=== PATIENT | female | born 1945 | race Caucasian/White ===

== ENCOUNTER → 2023-11-05 06:58 | Outpatient (REF) | payer MEDICARE, OTHER, SELFPAY ==
[2023-11-05 07:35] LABS: Urine Albumin Negative (Neg - Trace); Urine Bilirubin Negative (Negative); Urine Character Clear (Clear); Urine Color Yellow; Urine Glucose Negative (Negative); Urine Ketone Negative (Negative); Urine Leukocyte Negative (Negative); Urine Nitrite Negative (Negative); Urine Occult Blood 1+ (Negative); Urine Specific Gravity 1.015 (<1.030); Urine Urobilinogen Negative (Neg - 1+)
[2023-11-05 07:46] LABS: % Basophils 1.2 % (0-2); % Eosinophils 3.8 % (0-6); % Immature Granulocytes 0.2 % (0-0.5); % Lymphocytes 36.4 % (20.5-51.1); % Monocytes 9.9 % (1.7-9.3); % Neutrophils 48.5 % (42.2-75.2); Absolute Basophils 0.1 10^3/uL (0-0.2); Absolute Eosinophils 0.2 10^3/uL (0-0.7); Absolute Lymphocytes 2.2 10^3/uL (1.2-3.4); Absolute Monocytes 0.6 10^3/uL (0.1-0.6); Absolute Neutrophils 2.9 10^3/uL (1.4-6.5); Hematocrit 39.9 % (37.0-47.0); Hemoglobin 13.6 g/dL (12.0-16.0); Mean Corp Hgb Conc. 34.1 g/dL (33.0-37.0); Mean Corpuscular Hgb 30.4 pg (27.0-31.0); Mean Corpuscular Volume 89.3 fL (81.0-99.0); Mean Platelet Volume 11.4 fL (7.4-10.4); Nucleated Red Blood Cells % 0 %; Platelet Count 185 10^3/uL (130-400); Red Blood Cell Count 4.47 10^6/uL (4.20-5.40); Red Cell Dist. Width 12.6 % (11.5-14.5); White Blood Cell Count 6.1 10^3/uL (4.8-10.8)
[2023-11-05 07:49] LABS: Urine Bacteria Few (Negative); Urine Red Blood Cell 0-2 /HPF (0-2); Urine Squamous Cell 0-2 /LPF (Few); Urine White Cell 0-2 /HPF (0-5)
[2023-11-05 08:12] LABS: ALT (SGPT) 23 U/L (0-35); AST (SGOT) 27 U/L (14-36); Albumin 4.4 g/dl (3.5-5.0); Alkaline Phosphatase 103 U/L (38-126); Blood Urea Nitrogen 14 mg/dl (7-17); Carbon Dioxide 31 mmol/L (22-30); Chloride 100 mmol/L (98-107); Glucose 91 mg/dl (70-99); HDL Cholesterol 71 mg/dl; LDL Cholesterol, Calculated 123 mg/dl; Potassium 3.6 mmol/L (3.5-5.1); Sodium 139 mmol/L (135-145); Total Bilirubin 0.6 mg/dl (0.2-1.3); Total Cholesterol 229 mg/dl (50-199); Total Protein 7.9 g/dl (6.3-8.2); Triglyceride 176 mg/dl (10-149); Very Low Density Lipoprotein 35 mg/dl (0-30); eGFR > 60.00
[2023-11-05 08:36] LABS: Microalbumin, Random Urine <0.6 mg/dl (0.6-1.7)
[2023-11-05 09:39] LABS: Vitamin D, 25-OH*** 55.5 ng/mL (30-80)
[2023-11-05 09:53] LABS: TSH Reflex To Free T4 4.29 uIU/ml (0.47-4.68)
== END ==
LOC: REG 06:58
PROVIDERS: ATTENDING PHYSICIAN Internal Medicine
DX: E55.9 Vitamin D deficiency, unspecified (principal); E78.49 Other hyperlipidemia; Z00.00 Encounter for general adult medical examination without abnormal findings; Z78.9 Other specified health status
CPT/HCPCS: 36415; 80053; 80061; 81003; 81015; 82043; 82306; 82570; 84443; 85025; 86141

== ENCOUNTER → 2023-11-21 14:11 | Outpatient (REF) | payer MEDICARE, OTHER, SELFPAY ==
[2023-11-21 15:54] LABS: Urine Albumin Negative (Neg - Trace); Urine Bilirubin Negative (Negative); Urine Character Clear (Clear); Urine Color Yellow; Urine Glucose Negative (Negative); Urine Ketone Negative (Negative); Urine Leukocyte Negative (Negative); Urine Nitrite Negative (Negative); Urine Occult Blood 1+ (Negative); Urine Urobilinogen Negative (Neg - 1+)
[2023-11-21 16:03] LABS: Urine Bacteria Few (Negative); Urine White Cell 0-2 /HPF (0-5)
== END ==
LOC: REG 14:11
PROVIDERS: ATTENDING PHYSICIAN Internal Medicine
DX: R30.0 Dysuria (principal)
CPT/HCPCS: 81003; 81015; 87086

== ENCOUNTER → 2023-11-26 14:32 | Outpatient (REF) | payer MEDICARE, OTHER, SELFPAY ==
[2023-11-26 16:02] LABS: Urine Albumin Negative (Neg - Trace); Urine Bilirubin Negative (Negative); Urine Character Clear (Clear); Urine Color Yellow; Urine Glucose Negative (Negative); Urine Ketone Negative (Negative); Urine Leukocyte Negative (Negative); Urine Nitrite Negative (Negative); Urine Occult Blood Trace (Negative); Urine Urobilinogen Negative (Neg - 1+)
[2023-11-26 16:19] LABS: Urine Bacteria Few (Negative); Urine White Cell 0-2 /HPF (0-5)
== END ==
LOC: REG 14:32
PROVIDERS: ATTENDING PHYSICIAN Internal Medicine
DX: R10.9 Unspecified abdominal pain (principal); R31.9 Hematuria, unspecified
CPT/HCPCS: 81003; 81015

== ENCOUNTER → 2023-12-07 07:19 | Outpatient (REF) | payer MEDICARE, OTHER, SELFPAY ==
[2023-12-07 08:22] LABS: Urine Albumin Negative (Neg - Trace); Urine Bilirubin Negative (Negative); Urine Character Clear (Clear); Urine Color Yellow; Urine Glucose Negative (Negative); Urine Ketone Negative (Negative); Urine Leukocyte Negative (Negative); Urine Nitrite Negative (Negative); Urine Occult Blood 1+ (Negative); Urine Urobilinogen Negative (Neg - 1+)
[2023-12-07 08:45] LABS: Urine Squamous Cell 0-2 /LPF (Few)
[2023-12-07 08:46] LABS: Urine Red Blood Cell 0-2 /HPF (0-2); Urine Urothelial Cell 0-2 /LPF (FEW); Urine White Cell 0-2 /HPF (0-5)
[2023-12-07 09:05] LABS: Erythrocyte Sed Rate 26 mm/hour (0-20)
[2023-12-07 09:20] LABS: C-Reactive Protein < 5.00 mg/L (0.0-10.00)
[2023-12-07 09:37] LABS: Free T4 0.94 ng/dl (0.78-2.19)
[2023-12-07 09:51] LABS: TSH 3.28 uIU/ml (0.47-4.68)
[2023-12-07 10:04] LABS: Creatine Phosphokinase 29 U/L (30-135); LDH 165 U/L (120-246)
[2023-12-08 09:47] LABS: Thyroid Peroxidase Ab (TPO) 0.9 IU/mL (0.0-9.0)
[2023-12-08 20:44] LABS: Aldolase 3.3 U/L (1.2-7.6)
[2023-12-10 19:51] LABS: Thyroglobulin Antibodies 4.6 IU/mL (0.0-4.0); Thyroglobulin by LC-MS/MS <0.5 ng/mL (1.3-31.8)
== END ==
LOC: REG 07:19
PROVIDERS: ATTENDING PHYSICIAN Internal Medicine
DX: M79.10 Myalgia, unspecified site (principal); R31.29 Other microscopic hematuria; R79.89 Other specified abnormal findings of blood chemistry; L65.9 Nonscarring hair loss, unspecified
CPT/HCPCS: 36415; 81003; 81015; 82085; 82550; 83615; 84432; 84439; 84443; 85652; 86140; 86376; 86800

== ENCOUNTER → 2023-12-19 10:25 | Outpatient (REF) | payer MEDICARE, OTHER, SELFPAY | LOC: RAD 10:25 | PROVIDERS: ATTENDING PHYSICIAN Internal Medicine | DX: M81.0 Age-related osteoporosis without current pathological fracture (principal) | CPT/HCPCS: 77080 ==

== ENCOUNTER → 2023-12-31 09:59 | Outpatient (REF) | payer MEDICARE, OTHER, SELFPAY | LOC: RAD 09:59 | PROVIDERS: ATTENDING PHYSICIAN Internal Medicine | DX: R31.29 Other microscopic hematuria (principal); N94.9 Unspecified condition associated with female genital organs and menstrual cycle; R18.8 Other ascites | CPT/HCPCS: 76770; 76856 ==

== ENCOUNTER → 2024-01-09 07:08 | Outpatient (REF) | payer MEDICARE, OTHER, SELFPAY ==
[2024-01-09 07:47] LABS: % Eosinophils 3.1 % (0-6); % Immature Granulocytes 0.2 % (0-0.5); % Lymphocytes 33.2 % (20.5-51.1); % Monocytes 10.2 % (1.7-9.3); % Neutrophils 52.3 % (42.2-75.2); Absolute Basophils 0.1 10^3/uL (0-0.2); Absolute Eosinophils 0.2 10^3/uL (0-0.7); Absolute Lymphocytes 1.6 10^3/uL (1.2-3.4); Absolute Monocytes 0.5 10^3/uL (0.1-0.6); Absolute Neutrophils 2.5 10^3/uL (1.4-6.5); Hematocrit 39.8 % (37.0-47.0); Hemoglobin 13.3 g/dL (12.0-16.0); Mean Corp Hgb Conc. 33.4 g/dL (33.0-37.0); Mean Corpuscular Hgb 30.7 pg (27.0-31.0); Mean Corpuscular Volume 91.9 fL (81.0-99.0); Mean Platelet Volume 11.5 fL (7.4-10.4); Nucleated Red Blood Cells % 0 %; Platelet Count 170 10^3/uL (130-400); Red Blood Cell Count 4.33 10^6/uL (4.20-5.40); Red Cell Dist. Width 12.1 % (11.5-14.5); White Blood Cell Count 4.8 10^3/uL (4.8-10.8)
[2024-01-09 08:27] LABS: Blood Urea Nitrogen 17 mg/dl (7-17); Calcium 9.9 mg/dl (8.4-10.2); Carbon Dioxide 28 mmol/L (22-30); Chloride 100 mmol/L (98-107); Glucose 89 mg/dl (70-99); Potassium 4.1 mmol/L (3.5-5.1); Sodium 138 mmol/L (135-145); eGFR > 60.00
[2024-01-12 05:51] LABS: Albumin 3.98 g/dL (3.75-5.01); Alpha 1 Globulin 0.25 g/dL (0.19-0.46); Free Kappa Light Chains,Quant 36.15 mg/L (3.30-19.40); Free Lambda Light Chains,Quant 11.59 mg/L (5.71-26.30); IgA 95 mg/dL (68-408); IgG 741 mg/dL (768-1632); IgM 733 mg/dL (35-263); Immunofixation Electrophoresis IFE Done; Kappa/Lambda Fr Light Ratio 3.12 (0.26-1.65); Monoclonal Protein 0.55 g/dL (<=0.00)
== END ==
LOC: REG 07:08
PROVIDERS: ATTENDING PHYSICIAN Internal Medicine Hematology & Oncology; FAMILY PHYSICIAN Internal Medicine
DX: D47.2 Monoclonal gammopathy (principal); R10.84 Generalized abdominal pain; C50.912 Malignant neoplasm of unspecified site of left female breast; C50.911 Malignant neoplasm of unspecified site of right female breast; Z90.13 Acquired absence of bilateral breasts and nipples
CPT/HCPCS: 36415; 80048; 82784; 83521; 84155; 84165; 85025; 86334

== ENCOUNTER 2024-01-14 22:31 | Emergency (ER) | payer MEDICARE, OTHER, SELFPAY ==
[2024-01-14 22:40] VITALS: BP 155/80
[2024-01-14 23:00] LABS: % Basophils 0.8 % (0-2); % Eosinophils 2.4 % (0-6); % Immature Granulocytes 0.2 % (0-0.5); % Lymphocytes 35.7 % (20.5-51.1); % Monocytes 11.1 % (1.7-9.3); % Neutrophils 49.8 % (42.2-75.2); Absolute Basophils 0.1 10^3/uL (0-0.2); Absolute Eosinophils 0.2 10^3/uL (0-0.7); Absolute Lymphocytes 2.3 10^3/uL (1.2-3.4); Absolute Monocytes 0.7 10^3/uL (0.1-0.6); Absolute Neutrophils 3.1 10^3/uL (1.4-6.5); Hematocrit 37.3 % (37.0-47.0); Hemoglobin 13.2 g/dL (12.0-16.0); Mean Corp Hgb Conc. 35.4 g/dL (33.0-37.0); Mean Corpuscular Hgb 30.7 pg (27.0-31.0); Mean Corpuscular Volume 86.7 fL (81.0-99.0); Nucleated Red Blood Cells % 0 %; Platelet Count 185 10^3/uL (130-400); Red Cell Dist. Width 12.1 % (11.5-14.5); White Blood Cell Count 6.3 10^3/uL (4.8-10.8)
[2024-01-14 23:14] LABS: ALT (SGPT) 24 U/L (0-35); AST (SGOT) 28 U/L (14-36); Albumin 4.2 g/dl (3.5-5.0); Alkaline Phosphatase 115 U/L (38-126); Blood Urea Nitrogen 18 mg/dl (7-17); Calcium 10.2 mg/dl (8.4-10.2); Carbon Dioxide 34 mmol/L (22-30); Chloride 95 mmol/L (98-107); Glucose 94 mg/dl (70-99); Lipase 62 U/L (23-300); Potassium 4.5 mmol/L (3.5-5.1); Sodium 134 mmol/L (135-145); Total Bilirubin 0.5 mg/dl (0.2-1.3); Total Protein 7.3 g/dl (6.3-8.2); eGFR > 60.00
--- NOTE | 2024-01-15 02:52 | ED.GENMED ---
History of Present Illness
General
Chief Complaint: Abdominal Pain
Source: patient, records and spouse
Exam Limitations: none
Time Seen by Provider: 01/15/24 02:29
Nursing documentation reviewed up to this point in time: agreed with
Travel History
Have you had any contact with someone who has COVID-19?: No
Do you have any symptoms of coronavirus? Fever > 100 degrees, chills, cough, shortness of breath, sore throat, loss of taste or smell, muscle aches, or headache?: No
History of Present Illness
History of Present Illness:
Very pleasant 78-year-old female accompanied by her spouse developed abdominal pain yesterday while at mass, with bloating decreased p.o. intake, no diarrhea a lot of nausea states she has had chronic pancreatitis, never drinker no new meds, also
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
and improve
Past History
Past History
ED Past Medical History: Cancer (Breast cancer, status post bilateral mastectomies), GERD (Chronic upper abdominal pain. Gastritis/GERD), Hypercholesterolemia, Other (Cervical DJD, anxiety) and Other (Status post lap cholecystectomy, status post
common duct stone(03/07), status post rupture ectopic , total, hysterectomy, diverticulitis, eosinophilic esophagitis)
ED Past Surgical History: Cholecystectomy, Gynecological, Orthopedic (Left carpal tunnel release, laminectomy) and Other (Melvin. Mastectomy, Hysterectomy)
Social History
Tobacco: Non-smoker
Alcohol: None
Drug: None
Personal:
Living: with family
Employment: Retired
Family History
Family History: Other (Father and brother with lymphoma, father with liver disease)
Review of Systems
Review of Systems
All Other Systems: Not applicable
Constitutional: Denies fever or fatigue
EENT: Reports no symptoms
Respiratory: Reports no symptoms
Cardiac: Reports no symptoms
ABD/GI: Reports abdominal pain, nausea and anorexia; Denies vomiting or constipated
: Reports no symptoms
Phy Exam
Physical Exam
Physical Exam:
Physical Exam
General: no apparent distress, not acutely ill
Neck: Lips are slightly dry
Heart: s1/s2 regular rate and rhythm, no murmur. equal radial pulses.
Lungs: no acute respiratory distress. clear bilaterally
Abdomen: Distended slightly diminished bowel sounds no guarding or rebound
Neuro: alert and oriented. no focal neurological deficits
Skin: no rash
Psychiatric: well kept. interactive and cooperative
Extremities: no edema.
Course
Orders/Labs/Results
Orders:
Orders
01/14/24 22:53
CMP [Comprehensive Metabolic Panel] Urgent
Complete Blood Count/With Diff Urgent
Lipase Urgent
01/15/24 02:44
Iohexol [Omnipaque] See Protocol PO NOW STA
01/15/24 02:45
CT Abd/pel W Iv And Oral Contr Urgent
Comment:
Reason For Exam: bloating
Morphine Sulfate 2 mg IV NOW STA
Ondansetron Injectable [Zofran] 4 mg IV NOW STA
01/15/24 02:57
Acetaminophen 1000MG/100Ml [Ofirmev] 1,000 mg in 100 ml IV ONCE
Acetaminophen IV Indication:: ED Narcotic Naive Pt-ONCE
01/15/24 06:03
0.9% Sodium Chloride 1000 ml [Nss] 1,000 ml IV BOLUS
Abnormal Lab Results
01/14/24
22:53
MPV 11.0 H fL
(7.4-10.4)
Absolute Monos (auto) 0.7 H 10^3/uL
(0.1-0.6)
Monocytes % 11.1 H %
(1.7-9.3)
Sodium 134 L mmol/L
(135-145)
Chloride 95 L mmol/L
(98-107)
Carbon Dioxide 34 H mmol/L
(22-30)
BUN 18 H mg/dl
(7-17)
01/14/24 22:53
01/14/24 22:53
Vital Signs
Initial and Last Documented VS:
Initial Vital Signs
Temp Pulse Resp BP Pulse Ox
97.7 F 80 22 155/80 96
01/14/24 22:40 01/14/24 22:40 01/14/24 22:40 01/14/24 22:40 01/14/24 22:40
Last Documented Vital Signs
Temp Pulse Resp BP Pulse Ox
97.7 F 80 22 155/80 96
01/14/24 22:40 01/14/24 22:40 01/14/24 22:40 01/14/24 22:40 01/14/24 22:40
*Critical Care Note
Total Time (30-74mins, 75-104mins- exclusive of procedures): Not Applicable
Update Note
Update Note:
Update patient looks well labs noted CAT scan report noted patient states she has some diarrhea requesting more fluids and given a warm blanket states she cannot tolerate any other meds
ED Attending Note
-
Portions of this chart may have been created with voice recognition software.� Occasional wrong word or��sound alike� substitutions may have occurred due to the inherent limitations of voice recognition software.
Discharge Plan
Departure
Patient Disposition: Home (Routine Discharge)
Date of Disposition: 01/15/24
Time of Disposition: 06:05
Patient with high blood pressure during this ER visit?: No
Condition: Good
Covid-19: Not Applicable
Discharge Problem:
Abdominal pain
Instructions: Abdominal Pain, Diarrhea in teens and adults
Prescriptions:
No Action
Refresh Classic (PF) 10 DROPS dropperette
2 drops BOTH EYES BID
Cran-Rx
1 cap PO BID
calcium-vitamin D3-vitamin K 1 EACH tablet,chewable
1 ea PO BID
Women's Multivitamin w-Biotin 1 EACH tablet,chewable
2 ea PO DAILY
Zenpep 1 EACH capsule,delayed release(DR/EC)
3 ea PO TID
Zenpep 1 EACH capsule,delayed release(DR/EC)
1 cap PO DIRECTED
Boost 237 ML liquid
237 ml PO DAILY
azelastine 205.5 mcg (0.15 %) spray,non-aerosol
2 spray intranasal BID Qty: 30 0RF
loratadine [Claritin] 10 mg tablet
10 mg PO DAILY Qty: 15 0RF
Referrals:
Suki Park MD [Family Provider] -
Interventions
Interventions:
*Risk Screen - Suicide Last Done: 01/14/24 22:40
*General Assessment Last Done: 01/15/24 02:44
*Neglect/Abuse Screening Last Done: 01/14/24 22:40
ED- Fall Risk Assessment Last Done: 01/15/24 02:44
*ED COVID-19 Vaccine History Last Done: 01/15/24 02:44
LA-Xkwqjh-Efsxzfzqwi Assessment Last Done: 01/15/24 02:44
Discharge Date and Time
Print Language: SLOVENIAN
[2024-01-15] MEDS: OMNIPAQUE 50 ML PO (03:04)
[2024-01-15] MEDS: ZOFRAN 4 MG IV (03:05)
[2024-01-15] MEDS: OFIRMEV 100 IV (03:06)
[2024-01-15] MEDS: NSS 1000 IV (06:17)
[2024-01-15 08:15] VITALS: BP 138/74
== END 2024-01-15 08:18 | disposition home or self-care (01) ==
LOC: EMR 22:31
PROVIDERS: Emergency Medicine; EMERGENCY PHYSICIAN Emergency Medicine; FAMILY PHYSICIAN Internal Medicine
DX: R10.9 Unspecified abdominal pain (principal); R19.7 Diarrhea, unspecified; R14.0 Abdominal distension (gaseous); R11.0 Nausea; K86.1 Other chronic pancreatitis; K21.9 Gastro-esophageal reflux disease without esophagitis; E78.00 Pure hypercholesterolemia, unspecified; M47.812 Spondylosis without myelopathy or radiculopathy, cervical region; F41.9 Anxiety disorder, unspecified; K57.92 Diverticulitis of intestine, part unspecified, without perforation or abscess without bleeding; G62.9 Polyneuropathy, unspecified; Z85.3 Personal history of malignant neoplasm of breast; Z90.49 Acquired absence of other specified parts of digestive tract; Z90.13 Acquired absence of bilateral breasts and nipples; Z86.16 Personal history of COVID-19; Z87.442 Personal history of urinary calculi; Z88.6 Allergy status to analgesic agent; Z88.1 Allergy status to other antibiotic agents; Z88.3 Allergy status to other anti-infective agents; Z91.030 Bee allergy status; Z91.040 Latex allergy status; Z88.5 Allergy status to narcotic agent; Z88.0 Allergy status to penicillin; Z88.7 Allergy status to serum and vaccine; Z88.8 Allergy status to other drugs, medicaments and biological substances; Z91.018 Allergy to other foods
CPT/HCPCS: 99285; 96374; 96375; 96361; 74177; 80053; 83690; 85025; Q9967

== ENCOUNTER → 2024-01-28 09:46 | Outpatient (REF) | payer MEDICARE, OTHER, SELFPAY ==
[2024-01-28 10:29] VITALS: BP 143/76; BP_SYST 76
== END ==
LOC: RADI 09:46
PROVIDERS: ATTENDING PHYSICIAN Nurse Practitioner Adult Health; FAMILY PHYSICIAN Internal Medicine
DX: R93.5 Abnormal findings on diagnostic imaging of other abdominal regions, including retroperitoneum (principal); R10.84 Generalized abdominal pain; D47.2 Monoclonal gammopathy; Z53.09 Procedure and treatment not carried out because of other contraindication; Z85.3 Personal history of malignant neoplasm of breast; Z88.5 Allergy status to narcotic agent; Z88.8 Allergy status to other drugs, medicaments and biological substances; Z91.030 Bee allergy status; Z91.040 Latex allergy status
CPT/HCPCS: 76380; 76705

== ENCOUNTER → 2024-02-15 15:18 | Outpatient (REF) | payer MEDICARE, OTHER, SELFPAY | LOC: CLAB 15:18 | PROVIDERS: ATTENDING PHYSICIAN Specialist | DX: R31.9 Hematuria, unspecified (principal) | CPT/HCPCS: 88112 ==

== ENCOUNTER → 2024-02-18 19:45 | Outpatient (REF) | payer MEDICARE, OTHER, SELFPAY | LOC: MRI 3T 19:45 | PROVIDERS: ATTENDING PHYSICIAN Internal Medicine | DX: N83.201 Unspecified ovarian cyst, right side (principal); R18.8 Other ascites | CPT/HCPCS: 72197; A9575 ==

== ENCOUNTER → 2024-04-01 09:59 | Outpatient (REF) | payer MEDICARE, OTHER, SELFPAY | LOC: RAD 09:59 | PROVIDERS: ATTENDING PHYSICIAN Internal Medicine | DX: I82.409 Acute embolism and thrombosis of unspecified deep veins of unspecified lower extremity (principal); I80.9 Phlebitis and thrombophlebitis of unspecified site; R22.42 Localized swelling, mass and lump, left lower limb | CPT/HCPCS: 93971 ==

== ENCOUNTER → 2024-04-14 07:53 | Outpatient (REF) | payer MEDICARE, OTHER, SELFPAY | LOC: RAD 07:53 | PROVIDERS: ATTENDING PHYSICIAN Internal Medicine | DX: R13.19 Other dysphagia (principal); M25.561 Pain in right knee; M25.562 Pain in left knee; M81.0 Age-related osteoporosis without current pathological fracture | CPT/HCPCS: 73560; 74246 ==

== ENCOUNTER 2024-04-25 06:32 | Day surgery (SDC) | payer MEDICARE, OTHER, SELFPAY ==
[2024-04-25 13:08] VITALS: BMI 22.3
[2024-04-25 13:10] VITALS: BP 155/95
[2024-04-25 13:21] VITALS: BMI 22.3
[2024-04-25 15:05] VITALS: BP 145/79
[2024-04-25 15:15] VITALS: BP 141/80
[2024-04-25 15:30] VITALS: BP 143/76
== END 2024-04-25 16:00 | disposition home or self-care (01) ==
LOC: SDS 06:32
PROVIDERS: ATTENDING PHYSICIAN Internal Medicine Gastroenterology
DX: K31.7 Polyp of stomach and duodenum (principal); K21.9 Gastro-esophageal reflux disease without esophagitis; K31.89 Other diseases of stomach and duodenum
CPT/HCPCS: 43239; 88305; 88313

== ENCOUNTER 2024-05-04 06:30 | Emergency (ER) | payer MEDICARE, BC, OTHER, SELFPAY ==
[2024-05-04 06:31] VITALS: BP 115/72; BMI 17.6
[2024-05-04 06:37] VITALS: BP 135/115
[2024-05-04 06:38] VITALS: BP 115/72
[2024-05-04 06:52] LABS: % Basophils 1.1 % (0-2); % Eosinophils 3.8 % (0-6); % Immature Granulocytes 0.2 % (0-0.5); % Lymphocytes 44.4 % (20.5-51.1); % Monocytes 10.4 % (1.7-9.3); % Neutrophils 40.1 % (42.2-75.2); Absolute Basophils 0.1 10^3/uL (0-0.2); Absolute Eosinophils 0.2 10^3/uL (0-0.7); Absolute Lymphocytes 2.4 10^3/uL (1.2-3.4); Absolute Monocytes 0.6 10^3/uL (0.1-0.6); Absolute Neutrophils 2.2 10^3/uL (1.4-6.5); Hematocrit 37.1 % (37.0-47.0); Hemoglobin 13.2 g/dL (12.0-16.0); Mean Corp Hgb Conc. 35.6 g/dL (33.0-37.0); Mean Corpuscular Hgb 30.5 pg (27.0-31.0); Mean Corpuscular Volume 85.7 fL (81.0-99.0); Mean Platelet Volume 11.8 fL (7.4-10.4); Nucleated Red Blood Cells % 0 %; Platelet Count 184 10^3/uL (130-400); Red Blood Cell Count 4.33 10^6/uL (4.20-5.40); Red Cell Dist. Width 12.1 % (11.5-14.5); White Blood Cell Count 5.5 10^3/uL (4.8-10.8)
[2024-05-04 07:07] LABS: ALT (SGPT) 18 U/L (0-35); AST (SGOT) 30 U/L (14-36); Albumin 4.3 g/dl (3.5-5.0); Alkaline Phosphatase 95 U/L (38-126); Blood Urea Nitrogen 17 mg/dl (7-17); Calcium 10.5 mg/dl (8.4-10.2); Carbon Dioxide 26 mmol/L (22-30); Chloride 101 mmol/L (98-107); Estimated Creatinine Clearance 57 ml/min; Glucose 90 mg/dl (70-99); Potassium 3.9 mmol/L (3.5-5.1); Sodium 140 mmol/L (135-145); Total Bilirubin 0.6 mg/dl (0.2-1.3); Total Protein 7.1 g/dl (6.3-8.2); eGFR > 60.00
[2024-05-04 07:10] LABS: D-Dimer 0.34 ug/mlFEU (0.00-0.50)
--- NOTE | 2024-05-04 07:22 | ED.GENMED ---
History of Present Illness
General
Chief Complaint: Chest Pain
Time Seen by Provider: 05/04/24 06:47
History of Present Illness
History of Present Illness:
79-year-old female with history of gastric reflux presenting to the emergency department for chest pain. Patient reports she has been having ongoing chest discomfort for the past month, however woke up at 5 AM with pressure, felt like something was
sitting on her chest. She felt dyspneic at the time. Symptoms have since resolved. She notes that last night she was having some pain in her left calf. Denies inciting injury or trauma. Denies any known cardiac issues. Denies any history of
blood clot, recent travel, recent surgery. Denies abdominal pain or GI discomfort. Denies fever, cough, systemic symptoms. Denies additional acute medical complaints
Past History
Past History
ED Past Medical History: Cancer (Breast cancer, status post bilateral mastectomies), GERD (Chronic upper abdominal pain. Gastritis/GERD), Hypercholesterolemia, Other (Cervical DJD, anxiety) and Other (Status post lap cholecystectomy, status post
common duct stone(03/07), status post rupture ectopic , total, hysterectomy, diverticulitis, eosinophilic esophagitis)
ED Past Surgical History: Cholecystectomy, Gynecological, Orthopedic (Left carpal tunnel release, laminectomy) and Other (Melvin. Mastectomy, Hysterectomy)
Social History
Tobacco: Non-smoker
Alcohol: None
Drug: None
Personal:
Living: with family
Employment: Retired
Family History
Family History: Other (Father and brother with lymphoma, father with liver disease)
Phy Exam
Physical Exam
Physical Exam:
General: Well-appearing, no clinical signs of dehydration, nontoxic and in no acute distress
HEENT: protecting airway
Neck: appears supple
CV: Normal heart rate, regular rhythm, no evidence of cyanosis
Resp: No accessory muscle use, no increased work of breathing, lungs clear to auscultation bilaterally
Abd: Soft and non-distended, no tenderness to palpation
Extremities: No deformities, no swelling, no erythema, pulses and sensation intact
Neuro: alert, no focal neurologic deficit
: deferred
Rectal: deferred
Psych: Normal affect
Skin: Intact
Scores
Heart Score for Chest Pain Patients
STEMI patient?: No
History: Slightly or Non-Suspicious
ECG: Normal
Age: >/= 65 years
Risk Factors: 1 or 2 Risk Factors
Troponin: </= Normal Limit
Heart Score for Chest Pain Patients: 3
Heart Score Risk: 2.5% MACE over next 6 weeks
Course
Orders/Labs/Results
Orders:
Orders
05/04/24 06:31
Electrocardiogram (*1) Urgent
Reason for Study: Chest Pain
Cardiac Monitoring- Treatment ONCE
EKG- Treatment ONCE
IV Insert/Care/Rem.- Treatment PRN
O2 Therapy [RESP] Urgent
Titrate/Wean O2 to maintain O2 sat greater than (%): 90
Special Instructions: Maintain sats >/=90%
Pulse Ox/spot Check [RESP] Urgent
Quantity: 1
Special Instructions: ON ROOM AIR
05/04/24 06:40
Complete Blood Count/With Diff Urgent
Comprehensive Metabolic Panel Urgent
05/04/24 06:48
CR Chest - 2 Views Urgent
Comment:
Reason For Exam: chest pain
05/04/24 06:49
D-Dimer Urgent
05/04/24 07:53
Troponin I Urgent
Abnormal Lab Results
05/04/24
06:40
MPV 11.8 H fL
(7.4-10.4)
Neutrophils % 40.1 L %
(42.2-75.2)
Monocytes % 10.4 H %
(1.7-9.3)
Calcium 10.5 H mg/dl
(8.4-10.2)
05/04/24 06:40
05/04/24 06:40
Vital Signs
Initial and Last Documented VS:
Initial Vital Signs
Temp Pulse Resp BP Pulse Ox
98.1 F 78 16 115/72 100
05/04/24 06:31 05/04/24 06:31 05/04/24 06:31 05/04/24 06:31 05/04/24 06:31
Last Documented Vital Signs
Temp Pulse Resp BP Pulse Ox
98.1 F 77 17 115/72 100
05/04/24 06:31 05/04/24 06:45 05/04/24 06:45 05/04/24 06:38 05/04/24 06:45
MDM/Problems Addressed
MDM/Problems Addressed:
79-year-old female with history of gastric reflux presenting for chest pressure, onset prior to arrival. Vital signs on arrival are normal.
On exam, patient is well-appearing, no acute distress or discomfort. Unremarkable cardiac and pulmonary exam. Patient comfortably, EKG obtained on patient's arrival, sinus rhythm without acute evidence of ischemia or change from prior. Patient
currently asymptomatic. Lower suspicion for ACS at this time. Will screen further with laboratory analysis including troponin and chest x-ray imaging. Lower suspicion for aortic catastrophe, normal blood pressure, again asymptomatic. Patient
reports at symptom onset, checked her heart rate and it was elevated. Also notes some left calf pain. No swelling or signs of DVT. Will screen with D-dimer. Will continue to closely monitor
09:00 -patient's labs are unremarkable. Chest x-ray without acute cardiopulmonary disease. Troponin is undetectable. On reassessment, patient remained stable, reports improvement of her symptoms. At this time, again low suspicion for acute
cardiac event, however patient's last tress test was in 2015. She follows with cardiology, advised follow-up for repeat stress testing. Feel stable for discharge. Strict return precautions communicated to patient and at bedside who
verbalized understanding
*EKG
Interpreted by ED Provider?: Yes
EKG Intrepretation Date: 05/04/24
EKG Intrepretation Time: 07:28
Interpretation: normal
Comparison EKG: no changes (07/18/23)
Heart Rate: 73
Rate: normal
Rhythm: sinus
[place]: normal axis
Interval: normal interval
QRS Pattern: normal QRS
Ischemia: no ischemia
*Critical Care Note
Total Time (30-74mins, 75-104mins- exclusive of procedures): Not Applicable
ED Attending Note
-
Portions of this chart may have been created with voice recognition software.� Occasional wrong word or��sound alike� substitutions may have occurred due to the inherent limitations of voice recognition software.
Discharge Plan
Departure
Prescriptions:
No Action
Refresh Classic (PF) 10 DROPS dropperette
2 drops BOTH EYES BID
Cran-Rx
2 gummy PO DAILY
calcium-vitamin D3-vitamin K 1 EACH tablet,chewable
2 ea PO BID
Women's Multivitamin w-Biotin 1 EACH tablet,chewable
2 ea PO DAILY
Boost High Protein Liquid
1 ea PO DAILY
Zenpep 25,000-79,000- 105,000 unit Capsule,Delayed Release(Dr/Ec)
3 cap PO TID
Zenpep 25,000-79,000- 105,000 unit Capsule,Delayed Release(Dr/Ec)
1 cap PO DAILY
Patient Comments:
1 cap with snack plus 3 capsules 3times/day
Referrals:
Suki Park MD [Family Provider] -
Interventions
Interventions:
*Risk Screen - Suicide Last Done: 05/04/24 06:31
*General Assessment Last Done: 05/04/24 06:31
*Neglect/Abuse Screening Last Done: 05/04/24 06:31
*ED COVID-19 Vaccine History Last Done: 05/04/24 06:31
ED- Cardiac Assessment Last Done: 05/04/24 06:49
Discharge Date and Time
Print Language: UZBEK
[2024-05-04 08:25] LABS: Troponin I < 0.012 ng/ml
[2024-05-04 09:24] VITALS: BP 136/70
== END 2024-05-04 09:31 | disposition home or self-care (01) ==
LOC: EMR 06:30
PROVIDERS: EMERGENCY PHYSICIAN Student in an Organized Health Care Education/Training Program; FAMILY PHYSICIAN Internal Medicine
DX: R07.89 Other chest pain (principal); K21.9 Gastro-esophageal reflux disease without esophagitis; E78.00 Pure hypercholesterolemia, unspecified; Z85.3 Personal history of malignant neoplasm of breast; Z87.19 Personal history of other diseases of the digestive system
CPT/HCPCS: 99285; 71046; 80053; 84484; 85025; 85379; 93005

== ENCOUNTER → 2024-05-07 09:31 | Outpatient (REF) | payer MEDICARE, BC, OTHER, SELFPAY ==
[2024-05-07 11:47] LABS: TSH Reflex To Free T4 2.69 uIU/ml (0.47-4.68)
== END ==
LOC: REG 09:31
PROVIDERS: ATTENDING PHYSICIAN Physician Assistant Medical; FAMILY PHYSICIAN Internal Medicine
DX: R00.2 Palpitations (principal)
CPT/HCPCS: 36415; 84443

== ENCOUNTER → 2024-05-16 07:21 | Outpatient (REF) | payer MEDICARE, BC, OTHER, SELFPAY ==
[2024-05-16 08:05] LABS: Ionized Calcium 1.21 mMOL/L (1.15-1.33)
[2024-05-16 08:41] LABS: Vitamin D, 25-OH*** 52.2 ng/mL (30-80)
[2024-05-16 09:06] LABS: ALT (SGPT) 22 U/L (0-35); AST (SGOT) 29 U/L (14-36); Albumin 4.2 g/dl (3.5-5.0); Alkaline Phosphatase 87 U/L (38-126); Blood Urea Nitrogen 12 mg/dl (7-17); Calcium 9.7 mg/dl (8.4-10.2); Carbon Dioxide 27 mmol/L (22-30); Chloride 101 mmol/L (98-107); Glucose 93 mg/dl (70-99); Potassium 4.4 mmol/L (3.5-5.1); Sodium 140 mmol/L (135-145); Total Bilirubin 0.5 mg/dl (0.2-1.3); Total Protein 6.9 g/dl (6.3-8.2); eGFR > 60.00
[2024-05-17 11:16] LABS: Intact PTH 48.2 pg/ml (13.6-85.8)
== END ==
LOC: REG 07:21
PROVIDERS: ATTENDING PHYSICIAN Internal Medicine
DX: E83.52 Hypercalcemia (principal)
CPT/HCPCS: 36415; 80053; 82306; 82330; 83970

== ENCOUNTER 2024-05-23 11:13 | Outpatient (RCR) | payer MEDICARE, BC, OTHER, SELFPAY | END 2024-05-23 23:59 | disposition home or self-care (01) | LOC: RPT 11:13 | PROVIDERS: ATTENDING PHYSICIAN Student in an Organized Health Care Education/Training Program; FAMILY PHYSICIAN Internal Medicine | DX: M25.571 Pain in right ankle and joints of right foot (principal); Z73.6 Limitation of activities due to disability | CPT/HCPCS: 97010; 97110; 97140; 97162; 97530 ==

== ENCOUNTER → 2024-05-27 12:30 | Outpatient (REF) | payer MEDICARE, BC, OTHER, SELFPAY | LOC: RCS 12:30 | PROVIDERS: ATTENDING PHYSICIAN Physician Assistant Medical; FAMILY PHYSICIAN Internal Medicine | DX: R07.9 Chest pain, unspecified (principal); R06.09 Other forms of dyspnea; R00.2 Palpitations | CPT/HCPCS: 93306 ==

== ENCOUNTER 2024-06-12 13:59 | Outpatient (RCR) | payer MEDICARE, BC, OTHER, SELFPAY | END 2024-06-12 23:59 | disposition home or self-care (01) | LOC: RPT 13:59 | PROVIDERS: ATTENDING PHYSICIAN Student in an Organized Health Care Education/Training Program; FAMILY PHYSICIAN Internal Medicine | DX: M25.571 Pain in right ankle and joints of right foot (principal); Z73.6 Limitation of activities due to disability | CPT/HCPCS: 97110; 97530 ==

== ENCOUNTER → 2024-06-19 06:42 | Outpatient (REF) | payer MEDICARE, BC, OTHER, SELFPAY | LOC: RAD 06:42 | PROVIDERS: ATTENDING PHYSICIAN Internal Medicine Gastroenterology; FAMILY PHYSICIAN Internal Medicine | DX: K59.09 Other constipation (principal) | CPT/HCPCS: 74270 ==

== ENCOUNTER → 2024-07-02 06:37 | Outpatient (REF) | payer MEDICARE, BC, OTHER, SELFPAY | LOC: MRI 06:37 | PROVIDERS: ATTENDING PHYSICIAN Physical Medicine & Rehabilitation; FAMILY PHYSICIAN Internal Medicine | DX: M54.12 Radiculopathy, cervical region (principal) | CPT/HCPCS: 72141 ==

== ENCOUNTER → 2024-07-08 07:36 | Outpatient (REF) | payer MEDICARE, BC, OTHER, SELFPAY ==
[2024-07-08 08:23] LABS: % Basophils 1.2 % (0-2); % Eosinophils 5.2 % (0-6); % Immature Granulocytes 0.2 % (0-0.5); % Lymphocytes 34.4 % (20.5-51.1); % Monocytes 10.3 % (1.7-9.3); % Neutrophils 48.7 % (42.2-75.2); Absolute Basophils 0.1 10^3/uL (0-0.2); Absolute Eosinophils 0.3 10^3/uL (0-0.7); Absolute Lymphocytes 1.8 10^3/uL (1.2-3.4); Absolute Monocytes 0.5 10^3/uL (0.1-0.6); Absolute Neutrophils 2.5 10^3/uL (1.4-6.5); Hematocrit 38.4 % (37.0-47.0); Mean Corp Hgb Conc. 33.9 g/dL (33.0-37.0); Mean Corpuscular Hgb 30.3 pg (27.0-31.0); Mean Corpuscular Volume 89.5 fL (81.0-99.0); Mean Platelet Volume 11.3 fL (7.4-10.4); Nucleated Red Blood Cells % 0 %; Platelet Count 179 10^3/uL (130-400); Red Blood Cell Count 4.29 10^6/uL (4.20-5.40); White Blood Cell Count 5.2 10^3/uL (4.8-10.8)
[2024-07-08 09:03] LABS: Blood Urea Nitrogen 17 mg/dl (7-17); Calcium 9.7 mg/dl (8.4-10.2); Carbon Dioxide 29 mmol/L (22-30); Chloride 102 mmol/L (98-107); Glucose 86 mg/dl (70-99); Potassium 4.4 mmol/L (3.5-5.1); Sodium 141 mmol/L (135-145); eGFR > 60.00
[2024-07-11 07:54] LABS: Albumin 4.02 g/dL (3.75-5.01); Alpha 1 Globulin 0.24 g/dL (0.19-0.46); Free Kappa Light Chains,Quant 42.16 mg/L (3.30-19.40); IgA 96 mg/dL (68-408); IgG 857 mg/dL (768-1632); IgM 730 mg/dL (35-263); Immunofixation Electrophoresis IFE Done; Kappa/Lambda Fr Light Ratio 5.34 (0.26-1.65); Monoclonal Protein 0.62 g/dL (<=0.00); Total Protein-Electrophoresis 7.1 g/dL (6.3-8.2)
== END ==
LOC: REG 07:36
PROVIDERS: ATTENDING PHYSICIAN Internal Medicine Hematology & Oncology; FAMILY PHYSICIAN Internal Medicine
DX: D47.2 Monoclonal gammopathy (principal); R10.84 Generalized abdominal pain; C50.912 Malignant neoplasm of unspecified site of left female breast; C50.911 Malignant neoplasm of unspecified site of right female breast; Z90.13 Acquired absence of bilateral breasts and nipples; N83.201 Unspecified ovarian cyst, right side
CPT/HCPCS: 36415; 80048; 82784; 83521; 84155; 84165; 85025; 86334

== ENCOUNTER 2024-08-04 09:21 | Emergency (ER) | payer MEDICARE, BC, SELFPAY ==
[2024-08-04 09:24] VITALS: BP 104/64
[2024-08-04 09:51] VITALS: BMI 22.2
--- NOTE | 2024-08-04 10:11 | ED.GENMED ---
History of Present Illness
General
Chief Complaint: Fever
Time Seen by Provider: 08/04/24 10:04
History of Present Illness
History of Present Illness:
79 yo female presents to the Emergency Department for evaluation of cough, fever and nausea beginning yesterday. Tmax 103F. No ill contacts at home. Also reports mild lower abd pain (improving) with intermittent urinary incontinence. Cough dry, no
purulent sputum, no dyspnea or chest pain. Denies leg swelling.
Past History
Past History
ED Past Medical History: Cancer (Breast cancer, status post bilateral mastectomies), GERD (Chronic upper abdominal pain. Gastritis/GERD), Hypercholesterolemia, Other (Cervical DJD, anxiety) and Other (Status post lap cholecystectomy, status post
common duct stone(03/07), status post rupture ectopic , total, hysterectomy, diverticulitis, eosinophilic esophagitis)
ED Past Surgical History: Cholecystectomy, Gynecological, Orthopedic (Left carpal tunnel release, laminectomy) and Other (Melvin. Mastectomy, Hysterectomy)
Social History
Tobacco: Non-smoker
Alcohol: None
Drug: None
Personal:
Living: with family
Employment: Retired
Family History
Family History: Other (Father and brother with lymphoma, father with liver disease)
Review of Systems
Review of Systems
Allergies reviewed?: Yes
All Other Systems: ROS reviewed and negative except as documented in HPI and ROS
Phy Exam
Physical Exam
Physical Exam:
GEN: Well appearing, NAD, WDWN
Eyes: PERRLA, EOMs intact, no scleral icterus
HENT: NCAT, oral mucosa moist
Lungs: CTAB, no wheezes, rales, rhonchi, normal chest wall excursion
Cardiac: RRR, no M/R/G, no peripheral edema. Radial pulses 2+ bilat
Abdomen: S, NT, ND, NABS, no masses or hepatosplenomegaly
Neuro: AO x 3
MSK: No gross deformity or ecchymosis. No edema.
Skin: No rashes, petechiae. Normal color, no pallor or jaundice.
Psych: Calm, cooperative, proper hygiene
Course
Orders/Labs/Results
Orders:
Orders
08/04/24 09:48
COVID-19 Antigen Urgent
Source: Nasal Swab
Influenza A+B Rapid Molecular Urgent
GAGE Source: Nasal Swab
Specimen Description:
08/04/24 09:54
Urinalysis Reflex To Culture Urgent
Date Specimen was Collected: 08/04/24
Time Specimen was Collected: 09:50
Urine Microscopic Reflex Cult Urgent
08/04/24 10:11
0.9% Sodium Chloride 500 ml [Nss] 500 ml IV BOLUS
CR Chest - 2 Views Urgent
Comment:
Reason For Exam: cough/fever
08/04/24 10:24
Complete Blood Count/With Diff Urgent
Comprehensive Metabolic Panel Urgent
08/04/24 11:49
0.9% Sodium Chloride 500 ml [Nss] 500 ml IV BOLUS
Abnormal Lab Results
08/04/24 08/04/24 08/04/24
09:48 09:54 10:24
RBC 3.84 L 10^6/uL
(4.20-5.40)
Hct 35.1 L %
(37.0-47.0)
MCH 31.3 H pg
(27.0-31.0)
MPV 11.8 H fL
(7.4-10.4)
Absolute Lymphs (auto) 0.5 L 10^3/uL
(1.2-3.4)
Absolute Monos (auto) 0.8 H 10^3/uL
(0.1-0.6)
Neutrophils % 79.3 H %
(42.2-75.2)
Lymphocytes % 7.3 L %
(20.5-51.1)
Monocytes % 12.5 H %
(1.7-9.3)
Sodium 131 L mmol/L
(135-145)
Chloride 96 L mmol/L
(98-107)
BUN 18 H mg/dl
(7-17)
Glucose 103 H mg/dl
(70-99)
AST 168 H U/L
(14-36)
ALT 128 H U/L
(0-35)
Ur Occult Blood Reflex 2+ A
(Negative)
Leukocyte Esterase Rfl Trace A
(Negative)
Urine RBC 3-6 A /HPF
(0-2)
Urine Bacteria (Reflex) Few A
(Negative)
SARS-CoV-2 Antigen Positive A
(Negative)
08/04/24 10:24
08/04/24 10:24
Vital Signs
Initial and Last Documented VS:
Initial Vital Signs
Temp Pulse Resp BP Pulse Ox
99.9 F 86 18 104/64 100
08/04/24 09:24 08/04/24 09:24 08/04/24 09:24 08/04/24 09:24 08/04/24 09:24
Last Documented Vital Signs
Temp Pulse Resp BP Pulse Ox
99.9 F 83 16 104/64 96
08/04/24 09:24 08/04/24 10:07 08/04/24 10:07 08/04/24 09:24 08/04/24 10:07
MDM/Problems Addressed
MDM/Problems Addressed:
Patient is positive for COVID-19, labs reassuring, she is given IV fluids for rehydration purposes. Not hypoxic with no evidence of increased respiratory effort thus is suitable for outpatient management.
*Critical Care Note
Total Time (30-74mins, 75-104mins- exclusive of procedures): Not Applicable
ED Attending Note
-
Portions of this chart may have been created with voice recognition software.� Occasional wrong word or��sound alike� substitutions may have occurred due to the inherent limitations of voice recognition software.
Discharge Plan
Departure
Patient Disposition: Home (Routine Discharge)
Date of Disposition: 08/04/24
Time of Disposition: 11:49
Patient with high blood pressure during this ER visit?: No
Discharge Problem:
COVID-19
Instructions: COVID-19 ED
Prescriptions:
New
benzonatate 100 mg capsule
100 mg PO TID PRN (Reason: Cough) Qty: 20 0RF
ondansetron 4 mg tablet,disintegrating
4 mg PO TIDPRN PRN (Reason: nausea/vomiting) Qty: 10 0RF
No Action
Refresh Classic (PF) 10 DROPS dropperette
2 drops BOTH EYES BID
Cran-Rx
2 gummy PO DAILY
calcium-vitamin D3-vitamin K 1 EACH tablet,chewable
2 ea PO BID
Women's Multivitamin w-Biotin 1 EACH tablet,chewable
2 ea PO DAILY
Boost High Protein Liquid
1 ea PO DAILY
Zenpep 25,000-79,000- 105,000 unit Capsule,Delayed Release(Dr/Ec)
3 cap PO TID
Zenpep 25,000-79,000- 105,000 unit Capsule,Delayed Release(Dr/Ec)
1 cap PO DAILY
Patient Comments:
1 cap with snack plus 3 capsules 3times/day
Referrals:
Suki Park MD [Family Provider] -
Interventions
Interventions:
*Risk Screen - Suicide Last Done: 08/04/24 09:24
*General Assessment Last Done: 08/04/24 09:24
*ED COVID-19 Vaccine History Last Done: 08/04/24 09:24
*Nursing Disposition Last Done: 08/04/24 12:59
ED- Neurological Assessment Last Done: 08/04/24 09:51
ED-Skin Assessment Last Done: 08/04/24 09:51
Discharge Date and Time
Discharge Date/Time: 08/04/24 12:59
Print Language: SERBIAN
[2024-08-04 10:14] LABS: COVID-19 Antigen Positive (Negative)
[2024-08-04 10:14] LABS: Urine Albumin Trace (Neg - Trace); Urine Bilirubin Negative (Negative); Urine Character Clear (Clear); Urine Color Yellow; Urine Glucose Negative (Negative); Urine Ketone Negative (Negative); Urine Leukocyte Trace (Negative); Urine Nitrite Negative (Negative); Urine Occult Blood 2+ (Negative); Urine Specific Gravity 1.015 (<1.030); Urine Urobilinogen Negative (Neg - 1+)
[2024-08-04] MEDS: NSS 500 IV ×2 (10:23→12:43)
[2024-08-04 10:43] LABS: Urine Mucus Moderate
[2024-08-04 10:45] LABS: Urine Bacteria Few (Negative); Urine White Cell 0-2 /HPF (0-5)
[2024-08-04 10:49] LABS: ALT (SGPT) 128 U/L (0-35); AST (SGOT) 168 U/L (14-36); Alkaline Phosphatase 115 U/L (38-126); Blood Urea Nitrogen 18 mg/dl (7-17); Calcium 9.2 mg/dl (8.4-10.2); Carbon Dioxide 26 mmol/L (22-30); Chloride 96 mmol/L (98-107); Estimated Creatinine Clearance 48 ml/min; Glucose 103 mg/dl (70-99); Sodium 131 mmol/L (135-145); Total Bilirubin 0.7 mg/dl (0.2-1.3); Total Protein 6.7 g/dl (6.3-8.2); eGFR > 60.00
[2024-08-04 10:52] LABS: % Basophils 0.3 % (0-2); % Eosinophils 0.3 % (0-6); % Immature Granulocytes 0.3 % (0-0.5); % Lymphocytes 7.3 % (20.5-51.1); % Monocytes 12.5 % (1.7-9.3); % Neutrophils 79.3 % (42.2-75.2); Absolute Lymphocytes 0.5 10^3/uL (1.2-3.4); Absolute Monocytes 0.8 10^3/uL (0.1-0.6); Absolute Neutrophils 5.1 10^3/uL (1.4-6.5); Hematocrit 35.1 % (37.0-47.0); Mean Corp Hgb Conc. 34.2 g/dL (33.0-37.0); Mean Corpuscular Hgb 31.3 pg (27.0-31.0); Mean Corpuscular Volume 91.4 fL (81.0-99.0); Mean Platelet Volume 11.8 fL (7.4-10.4); Nucleated Red Blood Cells % 0 %; Platelet Count 132 10^3/uL (130-400); Red Blood Cell Count 3.84 10^6/uL (4.20-5.40); White Blood Cell Count 6.4 10^3/uL (4.8-10.8)
== END 2024-08-04 12:59 | disposition home or self-care (01) ==
LOC: EMR 09:21
PROVIDERS: Emergency Medicine; Physician Assistant; EMERGENCY PHYSICIAN Emergency Medicine; FAMILY PHYSICIAN Internal Medicine
DX: U07.1 COVID-19 (principal); R32 Unspecified urinary incontinence; K21.9 Gastro-esophageal reflux disease without esophagitis; E78.00 Pure hypercholesterolemia, unspecified; Z85.3 Personal history of malignant neoplasm of breast; Z87.19 Personal history of other diseases of the digestive system; Z87.59 Personal history of other complications of pregnancy, childbirth and the puerperium; Z90.49 Acquired absence of other specified parts of digestive tract; Z90.710 Acquired absence of both cervix and uterus
CPT/HCPCS: 99283; 96360; 71046; 80053; 81003; 81015; 85025; 87502; 87811

== ENCOUNTER → 2024-09-13 08:19 | Outpatient (REF) | payer MEDICARE, BC, SELFPAY ==
[2024-09-13 09:44] LABS: % Basophils 0.9 % (0-2); % Eosinophils 3.3 % (0-6); % Immature Granulocytes 0.3 % (0-0.5); % Lymphocytes 33.1 % (20.5-51.1); % Monocytes 9.5 % (1.7-9.3); % Neutrophils 52.9 % (42.2-75.2); Absolute Basophils 0.1 10^3/uL (0-0.2); Absolute Eosinophils 0.2 10^3/uL (0-0.7); Absolute Lymphocytes 1.9 10^3/uL (1.2-3.4); Absolute Monocytes 0.6 10^3/uL (0.1-0.6); Absolute Neutrophils 3.1 10^3/uL (1.4-6.5); Hematocrit 39.8 % (37.0-47.0); Hemoglobin 13.5 g/dL (12.0-16.0); Mean Corp Hgb Conc. 33.9 g/dL (33.0-37.0); Mean Corpuscular Hgb 30.6 pg (27.0-31.0); Mean Corpuscular Volume 90.2 fL (81.0-99.0); Mean Platelet Volume 11.9 fL (7.4-10.4); Nucleated Red Blood Cells % 0 %; Platelet Count 180 10^3/uL (130-400); Red Blood Cell Count 4.41 10^6/uL (4.20-5.40); Red Cell Dist. Width 12.1 % (11.5-14.5); White Blood Cell Count 5.8 10^3/uL (4.8-10.8)
[2024-09-13 10:04] LABS: ALT (SGPT) 34 U/L (0-35); AST (SGOT) 37 U/L (14-36); Albumin 4.4 g/dl (3.5-5.0); Alkaline Phosphatase 101 U/L (38-126); Blood Urea Nitrogen 15 mg/dl (7-17); Calcium 9.4 mg/dl (8.4-10.2); Carbon Dioxide 30 mmol/L (22-30); Chloride 99 mmol/L (98-107); Glucose 81 mg/dl (70-99); Potassium 4.2 mmol/L (3.5-5.1); Sodium 137 mmol/L (135-145); Total Bilirubin 0.9 mg/dl (0.2-1.3); Total Protein 7.4 g/dl (6.3-8.2); eGFR > 60.00
== END ==
LOC: REG 08:19
PROVIDERS: ATTENDING PHYSICIAN Internal Medicine
DX: R10.9 Unspecified abdominal pain (principal); R11.0 Nausea
CPT/HCPCS: 36415; 80053; 85025

== ENCOUNTER → 2024-11-06 08:06 | Outpatient (REF) | payer MEDICARE, BC, SELFPAY ==
[2024-11-06 09:05] LABS: % Basophils 0.9 % (0-2); % Eosinophils 3.2 % (0-6); % Immature Granulocytes 0.2 % (0-0.5); % Lymphocytes 35.9 % (20.5-51.1); % Monocytes 11.7 % (1.7-9.3); % Neutrophils 48.1 % (42.2-75.2); Absolute Eosinophils 0.2 10^3/uL (0-0.7); Absolute Lymphocytes 1.7 10^3/uL (1.2-3.4); Absolute Monocytes 0.5 10^3/uL (0.1-0.6); Absolute Neutrophils 2.2 10^3/uL (1.4-6.5); Hematocrit 40.3 % (37.0-47.0); Hemoglobin 13.6 g/dL (12.0-16.0); Mean Corp Hgb Conc. 33.7 g/dL (33.0-37.0); Mean Corpuscular Hgb 30.9 pg (27.0-31.0); Mean Corpuscular Volume 91.6 fL (81.0-99.0); Mean Platelet Volume 11.5 fL (7.4-10.4); Nucleated Red Blood Cells % 0 %; Platelet Count 164 10^3/uL (130-400); Red Cell Dist. Width 12.8 % (11.5-14.5); White Blood Cell Count 4.6 10^3/uL (4.8-10.8)
[2024-11-06 09:25] LABS: ALT (SGPT) 23 U/L (0-35); AST (SGOT) 28 U/L (14-36); Alkaline Phosphatase 102 U/L (38-126); Blood Urea Nitrogen 12 mg/dl (7-17); Carbon Dioxide 32 mmol/L (22-30); Chloride 99 mmol/L (98-107); Glucose 85 mg/dl (70-99); HDL Cholesterol 60 mg/dl; LDL Cholesterol, Calculated 119 mg/dl; Potassium 3.8 mmol/L (3.5-5.1); Sodium 136 mmol/L (135-145); Total Bilirubin 0.6 mg/dl (0.2-1.3); Total Cholesterol 217 mg/dl (50-199); Total Protein 7.1 g/dl (6.3-8.2); Triglyceride 192 mg/dl (10-149); Very Low Density Lipoprotein 38 mg/dl (0-30); eGFR > 60.00
[2024-11-06 09:56] LABS: TSH Reflex To Free T4 3.61 uIU/ml (0.47-4.68)
[2024-11-06 10:28] LABS: Vitamin D, 25-OH*** 54.4 ng/mL (30-80)
[2024-11-06 11:53] LABS: Calcium 9.6 mg/dl (8.4-10.2)
== END ==
LOC: REG 08:06
PROVIDERS: ATTENDING PHYSICIAN Internal Medicine
DX: K86.1 Other chronic pancreatitis (principal); R79.89 Other specified abnormal findings of blood chemistry; D47.2 Monoclonal gammopathy; M81.0 Age-related osteoporosis without current pathological fracture; E55.9 Vitamin D deficiency, unspecified; Z86.39 Personal history of other endocrine, nutritional and metabolic disease; D35.01 Benign neoplasm of right adrenal gland; Z00.00 Encounter for general adult medical examination without abnormal findings
CPT/HCPCS: 36415; 80053; 80061; 82306; 84443; 85025

== ENCOUNTER → 2024-11-07 10:10 | Outpatient (REF) | payer MEDICARE, BC, SELFPAY ==
[2024-11-07 17:38] LABS: Urine Albumin Negative (Neg - Trace); Urine Bilirubin Negative (Negative); Urine Character Clear (Clear); Urine Color Yellow; Urine Glucose Negative (Negative); Urine Ketone Negative (Negative); Urine Leukocyte Negative (Negative); Urine Nitrite Negative (Negative); Urine Occult Blood Negative (Negative); Urine Urobilinogen Negative (Neg - 1+)
== END ==
LOC: CLAB 10:10
PROVIDERS: ATTENDING PHYSICIAN Obstetrics & Gynecology
DX: N39.0 Urinary tract infection, site not specified (principal)
CPT/HCPCS: 81003; 87086

== ENCOUNTER 2024-11-12 14:10 | Outpatient (RCR) | payer MEDICARE, BC, SELFPAY | END 2024-11-12 23:59 | disposition home or self-care (01) | LOC: RPT 14:10 | PROVIDERS: ATTENDING PHYSICIAN Surgery; FAMILY PHYSICIAN Internal Medicine | DX: N81.6 Rectocele (principal); R10.30 Lower abdominal pain, unspecified; R10.2 Pelvic and perineal pain; M62.89 Other specified disorders of muscle; Z73.6 Limitation of activities due to disability; N39.41 Urge incontinence | CPT/HCPCS: 81003; 87086; 97112; 97140; 97163; 97530 ==

== ENCOUNTER 2024-12-15 15:02 | Outpatient (RCR) | payer MEDICARE, BC, SELFPAY | END 2024-12-15 23:59 | disposition home or self-care (01) | LOC: RPT 15:02 | PROVIDERS: ATTENDING PHYSICIAN Surgery; FAMILY PHYSICIAN Internal Medicine | DX: N81.6 Rectocele (principal); R10.30 Lower abdominal pain, unspecified; R10.2 Pelvic and perineal pain; M62.89 Other specified disorders of muscle; Z73.6 Limitation of activities due to disability; N39.41 Urge incontinence | CPT/HCPCS: 97140; 97530 ==

== ENCOUNTER 2025-01-22 14:06 | Outpatient (RCR) | payer MEDICARE, BC, SELFPAY | END 2025-01-22 23:59 | disposition home or self-care (01) | LOC: RPT 14:06 | PROVIDERS: ATTENDING PHYSICIAN Surgery; FAMILY PHYSICIAN Internal Medicine | DX: N81.6 Rectocele (principal); R10.30 Lower abdominal pain, unspecified; R10.2 Pelvic and perineal pain; M62.89 Other specified disorders of muscle; Z73.6 Limitation of activities due to disability; N39.41 Urge incontinence | CPT/HCPCS: 97112; 97140; 97530 ==

== ENCOUNTER 2025-01-25 18:29 | Emergency (ER) | payer MEDICARE, BC, SELFPAY ==
[2025-01-25 18:32] VITALS: BP 139/77
[2025-01-25] MEDS: ADACEL 0.5 ML IM (20:20)
--- NOTE | 2025-01-25 20:26 | ED.GENMED ---
History of Present Illness
General
Chief Complaint: Skin Problem
Source: patient and spouse
Exam Limitations: none
Time Seen by Provider: 01/25/25 19:55
Nursing documentation reviewed up to this point in time: agreed with
History of Present Illness
History of Present Illness:
79-year-old female presents with a splinter in her right forearm. She was gardening and felt a pinch in her forearm and noted some bleeding�she saw a foreign body but was not able to remove it after multiple attempts at home.
Past History
Past History
ED Past Medical History: Cancer (Breast cancer, status post bilateral mastectomies), GERD (Chronic upper abdominal pain. Gastritis/GERD), Hypercholesterolemia, Other (Cervical DJD, anxiety) and Other (Status post lap cholecystectomy, status post
common duct stone(03/07), status post rupture ectopic , total, hysterectomy, diverticulitis, eosinophilic esophagitis)
ED Past Surgical History: Cholecystectomy, Gynecological, Orthopedic (Left carpal tunnel release, laminectomy) and Other (Melvin. Mastectomy, Hysterectomy)
Social History
Tobacco: Non-smoker
Alcohol: None
Drug: None
Personal:
Living: with family
Employment: Retired
Family History
Family History: Other (Father and brother with lymphoma, father with liver disease)
Review of Systems
Review of Systems
All Other Systems: ROS reviewed and negative except as documented in HPI and ROS
Skin: Reports other (Pain/foreign body right forearm)
Phy Exam
Physical Exam
Physical Exam:
General: Well appearing and non-toxic
HEENT: protecting airway
Neck: appears supple
CV: No evidence of cyanosis
Resp: No accessory muscle use
Abd: Non-distended
Extremities: No deformities
Neuro: Alert
Psych: Normal affect
Skin: On the dorsum of the distal right forearm patient has punctate abrasion with tip of a small black/brown foreign body just under the skin
Scores
Heart Failure Risk
Heart Failure Risk Score: Not Applicable
Heart Score for Chest Pain Patients
STEMI patient?: Not applicable
Withdrawal Assessment of Alcohol
Withdrawal Assessment Completed?: Not applicable
Course
Orders/Labs/Results
Orders:
Orders
01/25/25 20:16
Tetanus/Diphth/Acelpertussis [Adacel] 0.5 ml .ROUTE .STK-MED ONE
01/25/25 20:19
Tetanus/Diphth/Acelpertussis [Adacel] 0.5 ml IM .ONCE ONE
Vital Signs
Initial and Last Documented VS:
Initial Vital Signs
Temp Pulse Resp BP Pulse Ox
36.6 C 79 16 139/77 100
01/25/25 18:32 01/25/25 18:32 01/25/25 18:32 01/25/25 18:32 01/25/25 18:32
Last Documented Vital Signs
Temp Pulse Resp BP Pulse Ox
36.6 C 79 16 139/77 100
01/25/25 18:32 01/25/25 18:32 01/25/25 18:32 01/25/25 18:32 01/25/25 18:32
Procedures
Foreign Body Removal-Skin
Wound explored and foreign body removed?: Yes
Anesthesia: local and 1% lidocaine
Foreign body removed using: forceps
Foreign body removed: completely
MDM/Problems Addressed
Differential Diagnosis Includes:
Foreign body in the forearm
MDM/Problems Addressed:
79-year-old female presents with a foreign body in her right forearm, happened prior to arrival while gardening. Area was anesthetized with lidocaine and using tweezers I was able to remove roughly 2 cm linear splinter in its entirety. Area was
cleaned and clean bandage applied. Spoke to patient about local wound care. Her tetanus is not up-to-date. She reports that in the past she had some fevers and localized swelling with tetanus shot and so she is hesitant to update. She says that
this happened while she was reaching into a bag of potting soil and given the nature of the foreign body and working in soil I do think tetanus prophylaxis is indicated and so we will proceed with tetanus booster. Advised to monitor area for signs
of infection and apply local antibiotic ointment. She feels comfortable this plan. All questions answered.
*Pulse Oximetry
Patient hypoxic: no
*Critical Care Note
Total Time (30-74mins, 75-104mins- exclusive of procedures): Not Applicable
Data Reviewed
Source: patient and spouse
ED Attending Note
-
Portions of this chart may have been created with voice recognition software.� Occasional wrong word or��sound alike� substitutions may have occurred due to the inherent limitations of voice recognition software.
Discharge Plan
Departure
Patient Disposition: Home (Routine Discharge)
Date of Disposition: 01/25/25
Time of Disposition: 20:10
Patient with high blood pressure during this ER visit?: No
Discharge Problem:
Foreign body in forearm
Instructions: Foreign Body in Skin ED
Prescriptions:
No Action
Refresh Classic (PF) 10 DROPS dropperette
2 drops BOTH EYES BID
Cran-Rx
2 gummy PO DAILY
calcium-vitamin D3-vitamin K 1 EACH tablet,chewable
2 ea PO BID
Women's Multivitamin w-Biotin 1 EACH tablet,chewable
2 ea PO DAILY
Boost High Protein Liquid
1 ea PO DAILY
Zenpep 25,000-79,000- 105,000 unit Capsule,Delayed Release(Dr/Ec)
3 cap PO TID
Zenpep 25,000-79,000- 105,000 unit Capsule,Delayed Release(Dr/Ec)
1 cap PO DAILY
Patient Comments:
1 cap with snack plus 3 capsules 3times/day
benzonatate 100 mg capsule
100 mg PO TID PRN (Reason: Cough) Qty: 20 0RF
ondansetron 4 mg tablet,disintegrating
4 mg PO TIDPRN PRN (Reason: nausea/vomiting) Qty: 10 0RF
Referrals:
Suki Park MD [Family Provider, Internal Medicine]
Activity Restrictions/Additional Instructions:
Thank you for visiting the Emergency Department at [facility].
1. Please schedule a follow up appointment as directed. Call first thing tomorrow morning to make an appointment.
2. If indicated, please take your medications as instructed and indicated on discharge paperwork.
3. If any of your symptoms do not improve, or persist, or become more severe within 6-12 hours, please return to the emergency department for further care.
4. Please return to the emergency department if you develop a headache, neck pain/stiffness, fever greater than 100.4F, chest pain, shortness of breath, persistent nausea, vomiting, slurred speech, difficulty walking, numbness/tingling, weakness,
signs of infection or any other symptoms that are worrisome to you.
Please call [phone] if you have any questions.
Interventions
Interventions:
*Risk Screen - Suicide Last Done: 01/25/25 18:32
*General Assessment Last Done: 01/25/25 18:32
*Neglect/Abuse Screening Last Done: 01/25/25 18:32
*ED- Fall Risk Assessment Last Done: 01/25/25 19:16
*ED COVID-19 Vaccine History Last Done: 01/25/25 19:16
*Nursing Disposition Last Done: 01/25/25 20:26
ED-Skin Assessment Last Done: 01/25/25 20:26
Discharge Date and Time
Print Language: CROATIAN
== END 2025-01-25 20:27 | disposition home or self-care (01) ==
LOC: EMR 18:29
PROVIDERS: EMERGENCY PHYSICIAN Emergency Medicine; FAMILY PHYSICIAN Internal Medicine
DX: S50.851A Superficial foreign body of right forearm, initial encounter (principal); W45.8XXA Other foreign body or object entering through skin, initial encounter; E78.00 Pure hypercholesterolemia, unspecified; Z85.3 Personal history of malignant neoplasm of breast; Z90.710 Acquired absence of both cervix and uterus; Z23 Encounter for immunization
CPT/HCPCS: 90471; 99282; 90715

== ENCOUNTER 2025-02-13 13:59 | Outpatient (RCR) | payer MEDICARE, BC, SELFPAY | END 2025-02-13 23:59 | disposition home or self-care (01) | LOC: RPT 13:59 | PROVIDERS: ATTENDING PHYSICIAN Surgery; FAMILY PHYSICIAN Internal Medicine | DX: N81.6 Rectocele (principal); R10.30 Lower abdominal pain, unspecified; R10.2 Pelvic and perineal pain; M62.89 Other specified disorders of muscle; Z73.6 Limitation of activities due to disability; N39.41 Urge incontinence | CPT/HCPCS: 97140; 97530 ==

== ENCOUNTER 2025-03-06 11:29 | Outpatient (RCR) | payer MEDICARE, BC, SELFPAY | END 2025-03-06 23:59 | disposition home or self-care (01) | LOC: RPT 11:29 | PROVIDERS: ATTENDING PHYSICIAN Surgery; FAMILY PHYSICIAN Internal Medicine | DX: N81.6 Rectocele (principal); R10.30 Lower abdominal pain, unspecified; R10.2 Pelvic and perineal pain; M62.89 Other specified disorders of muscle; Z73.6 Limitation of activities due to disability; N39.41 Urge incontinence | CPT/HCPCS: 97112; 97530 ==

== ENCOUNTER 2025-04-06 13:27 | Outpatient (RCR) | payer MEDICARE, BC, SELFPAY | END 2025-04-08 23:59 | disposition home or self-care (01) | LOC: RPT 13:27 | PROVIDERS: ATTENDING PHYSICIAN Internal Medicine | DX: G57.93 Unspecified mononeuropathy of bilateral lower limbs (principal); Z73.6 Limitation of activities due to disability; R26.89 Other abnormalities of gait and mobility; R29.6 Repeated falls | CPT/HCPCS: 97110; 97112; 97162 ==

== ENCOUNTER 2025-04-20 11:01 | Outpatient (RCR) | payer MEDICARE, BC, SELFPAY | END 2025-04-20 23:59 | disposition home or self-care (01) | LOC: RPT 11:01 | PROVIDERS: ATTENDING PHYSICIAN Surgery; FAMILY PHYSICIAN Internal Medicine | DX: N81.6 Rectocele (principal); Z73.6 Limitation of activities due to disability; R10.2 Pelvic and perineal pain; M62.89 Other specified disorders of muscle; R10.30 Lower abdominal pain, unspecified; N39.41 Urge incontinence; G62.0 Drug-induced polyneuropathy | CPT/HCPCS: 97110; 97112; 97140; 97530 ==

== ENCOUNTER 2025-05-25 11:13 | Outpatient (RCR) | payer MEDICARE, BC, SELFPAY | END 2025-05-25 14:38 | disposition home or self-care (01) | LOC: RPT 11:13 | PROVIDERS: ATTENDING PHYSICIAN Surgery; FAMILY PHYSICIAN Internal Medicine | DX: N81.6 Rectocele (principal); M62.89 Other specified disorders of muscle; Z73.6 Limitation of activities due to disability; N39.41 Urge incontinence; R10.30 Lower abdominal pain, unspecified; R10.2 Pelvic and perineal pain; G62.0 Drug-induced polyneuropathy | CPT/HCPCS: 97112; 97140; 97530 ==

== ENCOUNTER → 2025-07-07 07:29 | Outpatient (REF) | payer MEDICARE, BC, SELFPAY ==
[2025-07-07 08:08] LABS: Hematocrit 41.4 % (37.0-47.0); Hemoglobin 14.2 g/dL (12.0-16.0); Mean Corp Hgb Conc. 34.3 g/dL (33.0-37.0); Mean Corpuscular Volume 91.2 fL (81.0-99.0); Nucleated Red Blood Cells % 0 %; Platelet Count 204 10^3/uL (130-400); Red Cell Dist. Width 12.2 % (11.5-14.5)
[2025-07-07 08:34] LABS: Blood Urea Nitrogen 11 mg/dl (7-17); Calcium 9.6 mg/dl (8.4-10.2); Carbon Dioxide 32 mmol/L (22-30); Chloride 97 mmol/L (98-107); Glucose 90 mg/dl (70-99); Potassium 4.0 mmol/L (3.5-5.1); Sodium 132 mmol/L (135-145); eGFR > 60.00
[2025-07-10 00:25] LABS: Albumin 4.19 g/dL (3.75-5.01); Free Kappa Light Chains,Quant 41.84 mg/L (3.30-19.40); Free Lambda Light Chains,Quant 12.84 mg/L (5.71-26.30); Immunofixation Electrophoresis IFE Done; Kappa/Lambda Fr Light Ratio 3.26 (0.26-1.65); Total Protein-Electrophoresis 7.5 g/dL (6.3-8.2)
== END ==
LOC: REG 07:29
PROVIDERS: ATTENDING PHYSICIAN Internal Medicine Hematology & Oncology; FAMILY PHYSICIAN Internal Medicine
DX: D47.2 Monoclonal gammopathy (principal); R10.84 Generalized abdominal pain; C50.912 Malignant neoplasm of unspecified site of left female breast; C50.911 Malignant neoplasm of unspecified site of right female breast; Z90.13 Acquired absence of bilateral breasts and nipples; N83.201 Unspecified ovarian cyst, right side
CPT/HCPCS: 80048; 82784; 83521; 84155; 84165; 85025; 86334

== ENCOUNTER → 2025-07-27 07:12 | Outpatient (REF) | payer MEDICARE, BC, SELFPAY ==
[2025-07-27 08:57] LABS: Blood Urea Nitrogen 12 mg/dl (7-17); Calcium 9.4 mg/dl (8.4-10.2); Chloride 98 mmol/L (98-107); Glucose 83 mg/dl (70-99); Potassium 4.2 mmol/L (3.5-5.1); Sodium 133 mmol/L (135-145); eGFR > 60.00
[2025-07-27 09:13] LABS: Carbon Dioxide 31 mmol/L (22-30)
== END ==
LOC: REG 07:12
PROVIDERS: ATTENDING PHYSICIAN Internal Medicine
DX: E87.1 Hypo-osmolality and hyponatremia (principal)
CPT/HCPCS: 36415; 80048